=== PATIENT | female | born 1990 | race Caucasian/White ===

== ENCOUNTER 2017-10-20 18:34 | Inpatient (IN) | payer MEDICARE, OTHER ==
[~2017-10-20] VITALS: Ht 157.5 cm; Wt 62.1 kg
[~2017-10-20 18:34] MED LIST: BREX1TAB5 PO; CLOT1CRE8 TOPICAL; TRIH2 PO
[2017-10-20 19:06] VITALS: BP 104/59; PULSE 79; RESP 16; TEMP 98.1; O2SAT 99
[2017-10-20] MEDS ORDERED: QUET1TAB7 PO (21:05)
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
[2017-10-20 21:48] LABS: AMORPHOUS SEDIMENT, URINE RARE; BACTERIA, URINE MOD /hpf; BILIRUBIN, URINE NEG (NEG); BLOOD, URINE MOD (NEG); GLUCOSE,URINE NEG (NEG); KETONE, URINE NEG (NEG); MUCUS URINE FEW /lpf (OCC); NITRITE,URINE NEG (NEG); SQUAMOUS EPITHELIAL CELL URINE 5 /hpf (0-5); URINE COLOR COLORLESS (YELLW/STRAW); URINE LEUKOCYTE ESTERASE NEG (NEG)
[2017-10-20 21:48] LABS: AUTOMATED NEUTROPHIL # 6.7 TH/MM3 (1.8-7.7); BASOPHIL % 0.4 % (0.0-2.0); EOSINOPHIL # 0.1 TH/MM3 (0-0.4); HEMATOCRIT 41.3 % (35.0-46.0); HEMOGLOBIN 14.1 GM/DL (11.6-15.3); LYMPH % 22.2 % (9.0-44.0); LYMPHOCYTE # 2.1 TH/MM3 (1.0-4.8); MEAN CELL VOLUME 85.7 FL (80.0-100.0); MEAN CORPUSCULAR HEMOGLOBIN 29.2 PG (27.0-34.0); MEAN CORPUSCULAR HGB CONC 34.1 % (32.0-36.0); MEAN PLATELET VOLUME 8.1 FL (7.0-11.0); MONO % 4.4 % (0.0-8.0); MONOCYTE # 0.4 TH/MM3 (0-0.9); PLATELET COUNT 297 TH/MM3 (150-450); RED BLOOD COUNT 4.81 MIL/MM3 (4.00-5.30); RED CELL DISTRIBUTION WIDTH 13.4 % (11.6-17.2); WHITE BLOOD COUNT 9.4 TH/MM3 (4.0-11.0)
[2017-10-20 22:02] LABS: ALBUMIN 3.9 GM/DL (3.4-5.0); AST (GOT) 16 U/L (15-37); BICARBONATE 22.2 MEQ/L (21.0-32.0); BLOOD UREA NITROGEN 6 MG/DL (7-18); CALCIUM 8.8 MG/DL (8.5-10.1); CHLORIDE 110 MEQ/L (98-107); CREATININE 0.77 MG/DL (0.50-1.00); GLOMERULAR FILTRATION RATE 91 ML/MIN (>89); GLUCOSE,RANDOM 86 MG/DL (74-106); SODIUM (NA) 142 MEQ/L (136-145)
[2017-10-20 22:03] LABS: ALT (GPT) 18 U/L (10-53)
[2017-10-20 22:13] LABS: ALKALINE PHOSPHATASE 120 U/L (45-117); TOTAL BILIRUBIN ADULT 0.3 MG/DL (0.2-1.0); TOTAL PROTEIN 7.7 GM/DL (6.4-8.2)
[2017-10-20 22:15] LABS: ACETAMINOPHEN LESS THAN 2.0 MCG/ML (10.0-30.0)
[2017-10-21 06:39] VITALS: BP 114/62; PULSE 78; RESP 18; O2SAT 98
[2017-10-21] MEDS ORDERED: CEPH-460 PO (09:29)
--- NOTE | 2017-10-21 09:29 | PD ---
Physical Exam Time Seen by Provider: 09:28 Narrative See previous providers note for initial H&P. I noticed the patient had urine reflex to culture and was not treated for urinalysis with signs of infection. Keflex ordered and prescribed for home. Data Data Last Documented VS Vital Signs Date Time Temp Pulse Resp B/P (MAP) Pulse Ox O2 Delivery O2 Flow Rate FiO2 10/21/17 06:39 78 18 114/62 (79) 98 Room Air 10/20/17 19:06 98.1 Orders Orders Complete Blood Count With Diff (10/20/17 21:06) Comprehensive Metabolic Panel (10/20/17 21:06) Thyroid Stimulating Hormone (10/20/17 21:06) Urinalysis - C+S If Indicated (10/20/17 21:06) Psych Screen (10/20/17 21:06) Drug Screen, Random Urine (10/20/17 21:06) Alcohol (Ethanol) (10/20/17 21:06) Salicylates (Aspirin) (10/20/17 21:06) Tylenol (Acetaminophen) (10/20/17 21:06) Urine Culture (10/20/17 21:32) Cephalexin (Keflex) (10/21/17 09:30) Cephalexin (Keflex) (10/21/17 12:00) Quetiapine (Seroquel) (10/21/17 21:00) Admit To Inpatient Psych (10/21/17 ) Vital Signs (Adult) MEERA.Q12H.E (10/21/17 10:25) Activity Oob Ad Sindy (10/21/17 10:25) Lorazepam (Ativan) (10/21/17 10:30) Lorazepam Inj (Ativan Inj) (10/21/17 10:30) Acetaminophen (Tylenol) (10/21/17 10:30) Magnesium Hydroxide Liq (Milk Of Magnesi (10/21/17 10:30) Al-Mag Hy-Si 40-40-4 Mg/Ml Liq (Mag-Al P (10/21/17 10:30) Nicotine 21 Mg Patch.24 Hr (Habitrol 21 (10/21/17 10:30) Basic Metabolic Panel (Bmp) (10/22/17 06:00) Lipid Profile (10/22/17 06:00) Hemoglobin (Hgb) A1c (10/22/17 06:00) Labs Laboratory Tests Test 10/20/17 21:21 10/20/17 21:32 White Blood Count 9.4 TH/MM3 Red Blood Count 4.81 MIL/MM3 Hemoglobin 14.1 GM/DL Hematocrit 41.3 % Mean Corpuscular Volume 85.7 FL Mean Corpuscular Hemoglobin 29.2 PG Mean Corpuscular Hemoglobin Concent 34.1 % Red Cell Distribution Width 13.4 % Platelet Count 297 TH/MM3 Mean Platelet Volume 8.1 FL Neutrophils (%) (Auto) 72.0 % Lymphocytes (%) (Auto) 22.2 % Monocytes (%) (Auto) 4.4 % Eosinophils (%) (Auto) 1.0 % Basophils (%) (Auto) 0.4 % Neutrophils # (Auto) 6.7 TH/MM3 Lymphocytes # (Auto) 2.1 TH/MM3 Monocytes # (Auto) 0.4 TH/MM3 Eosinophils # (Auto) 0.1 TH/MM3 Basophils # (Auto) 0.0 TH/MM3 CBC Comment DIFF FINAL Differential Comment Blood Urea Nitrogen 6 MG/DL Creatinine 0.77 MG/DL Random Glucose 86 MG/DL Total Protein 7.7 GM/DL Albumin 3.9 GM/DL Calcium Level 8.8 MG/DL Alkaline Phosphatase 120 U/L Aspartate Amino Transf (AST/SGOT) 16 U/L Alanine Aminotransferase (ALT/SGPT) 18 U/L Total Bilirubin 0.3 MG/DL Sodium Level 142 MEQ/L Potassium Level 4.2 MEQ/L Chloride Level 110 MEQ/L Carbon Dioxide Level 22.2 MEQ/L Anion Gap 10 MEQ/L Estimat Glomerular Filtration Rate 91 ML/MIN Thyroid Stimulating Hormone 3rd Gen 0.874 uIU/ML Salicylates Level LESS THAN 1.7 MG/DL Acetaminophen Level LESS THAN 2.0 MCG/ML Ethyl Alcohol Level LESS THAN 3 MG/DL Urine Color COLORLESS Urine Turbidity CLEAR Urine pH 5.0 Urine Specific [place] 1.006 Urine Protein NEG mg/dL Urine Glucose (UA) NEG mg/dL Urine Ketones NEG mg/dL Urine Occult Blood MOD Urine Nitrite NEG Urine Bilirubin NEG Urine Urobilinogen LESS THAN 2.0 MG/DL Urine Leukocyte Esterase NEG Urine RBC 4 /hpf Urine WBC 1 /hpf Urine Squamous Epithelial Cells 5 /hpf Urine Amorphous Sediment RARE Urine Bacteria MOD /hpf Urine Mucus FEW /lpf Microscopic Urinalysis Comment CULTURE INDICATED Urine Opiates Screen NEG Urine Barbiturates Screen NEG Urine Amphetamines Screen NEG Urine Benzodiazepines Screen NEG Urine Cocaine Screen NEG Urine Cannabinoids Screen NEG MDM Supervised Visit with [facility]: No Narrative Course See previous providers note for initial H&P. And noticed the patient had urine reflex to culture and was not treated for urinalysis with signs of infection. Keflex ordered and prescribed for home. Diagnosis Primary Impression: Medical clearance for psychiatric admission Additional Impression: UTI (urinary tract infection) Qualified Codes: N39.0 - Urinary tract infection, site not specified Med/Other Pt SpecificInfo: Prescription(s) given Scripts Cephalexin (Keflex) 500 Mg Cap 500 MG PO Q12H for Infection for 7 Days, #14 CAP 0 Refills Prov: Roxy Talley 10/21/17 Condition: Stable Roxy Talley October 21, 2017 09:29
[2017-10-21] MEDS: CEPHALEXIN MONOHYDRATE 500 MG CAP PO SCH ×3 (09:32→21:39)
[2017-10-21] MEDS ORDERED: ALUMINUM/MAGNESIUM/SIMETH 30 ML CUP PO PRN (10:30)
[2017-10-21] MEDS ORDERED: LORazepam 1 MG TAB PO PRN (10:30)
[2017-10-21] MEDS ORDERED: ACETAMINOPHEN 325 MG TAB PO PRN (10:30)
[2017-10-21] MEDS ORDERED: MAGNESIUM HYDROXIDE SUSP 30 ML CUP PO PRN (10:30)
[2017-10-21] MEDS ORDERED: LORazepam 2 MG/ML VIAL IM PRN ×2 (10:30)
[2017-10-21] MEDS ORDERED: LORazepam 0.5 MG TAB PO PRN (10:30)
[2017-10-21 10:57] VITALS: BP 112/68; PULSE 70; RESP 16; O2SAT 100
[2017-10-21] MEDS: NICOTINE 21 MG/24 HR PATCH T-DERMAL SCH (11:46)
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
[2017-10-21] MEDS: REMOVE OLD NICODERM (NICOTINE) PATCH T-DERMAL SCH (21:00)
[2017-10-21] MEDS: QUEtiapine FUMARATE 25 MG TAB PO SCH (21:38)
[2017-10-22] MEDS: CEPHALEXIN MONOHYDRATE 500 MG CAP PO SCH ×4 (00:16→21:12)
[2017-10-22 06:18] VITALS: BP 100/55; PULSE 96; RESP 17; TEMP 97.9; O2SAT 98
[2017-10-22] MEDS: NICOTINE 21 MG/24 HR PATCH T-DERMAL SCH (08:16)
[2017-10-22 10:59] LABS: BICARBONATE 26.4 MEQ/L (21.0-32.0); BLOOD UREA NITROGEN 7 MG/DL (7-18); CALCIUM 8.8 MG/DL (8.5-10.1); CHLORIDE 107 MEQ/L (98-107); CREATININE 0.85 MG/DL (0.50-1.00); GLOMERULAR FILTRATION RATE 81 ML/MIN (>89); GLUCOSE,RANDOM 95 MG/DL (74-106); SODIUM (NA) 141 MEQ/L (136-145)
[2017-10-22 11:01] LABS: CHOLESTEROL 124 MG/DL (120-200); TRIGLYCERIDES 108 MG/DL (42-150)
[2017-10-22 11:03] LABS: CHOLESTEROL/ HDL RATIO 2.98 RATIO; HDL CHOLESTEROL 41.6 MG/DL (40.0-60.0); LDL CHOLESTEROL 61 MG/DL (0-99)
--- NOTE | 2017-10-22 12:44 | HHI.PYPN ---
Subjective Remarks Patient initially seen by Dr. Swann who dictated the initial psychiatric evaluation. I have finished the initial psychiatric template admission orders, and med reconciliation. Patient seen by me in her room with nurse lauren, chart reviewed, patient complaint medications, patient discussed with nurse. Patient did recognize me from prior contacts in 2016 as an inpatient. [place]. She states there is a medication change outpatient the lithium increased auditory hallucinations. She is not return to her Seroquel. States the voices are diminishing quickly though there were more threatening intimidating calling her to harm herself. She now denies suicidality or homicidality. She denies any alcohol or drug use, though she states she does smoke cigarettes. She now lives with her mother with a extended family. States that at times somewhat chaotic. In any event she is compliant with medications. For now continue treatment no change Review of Systems Except as stated in HPI: all other systems reviewed are Neg Mental Status Examination Appearance: Appropriate Consciousness: Alert Orientation: x4 Motor Activity: Normal gait Speech: Unremarkable Language: Adequate Fund of Knowledge: Adequate Attention and Concentration: Adequate Memory: Unremarkable Mood: Appropriate Affect: Appropriate Thought Process & Associations: Intact Thought Content: Bizarre thinking, Delusional Hallucination Type: Auditory, Command Delusion Type: None Suicidal Ideation: No Suicidal Plan: No Suicidal Intention: No Homicidal Ideation: No Homicidal Plan: No Homicidal Intention: No Insight: Fair Judgment: Impulsive Results Labs Test 10/22/17 09:34 Blood Urea Nitrogen 7 MG/DL Creatinine 0.85 MG/DL Random Glucose 95 MG/DL Calcium Level 8.8 MG/DL Sodium Level 141 MEQ/L Potassium Level 4.0 MEQ/L Chloride Level 107 MEQ/L Carbon Dioxide Level 26.4 MEQ/L Anion Gap 8 MEQ/L Estimat Glomerular Filtration Rate 81 ML/MIN Triglycerides Level 108 MG/DL Cholesterol Level 124 MG/DL LDL Cholesterol 61 MG/DL HDL Cholesterol 41.6 MG/DL Cholesterol/HDL Ratio 2.98 RATIO Date/Time Source Procedure Growth Status 10/20/17 21:32 Urine Random Urine Urine Culture - Final 50-100,000 CFU/ML MIXED CHAKA... Complete Vitals/IOs Vital Signs Date Time Temp Pulse Resp B/P (MAP) Pulse Ox O2 Delivery O2 Flow Rate FiO2 10/22/17 06:18 97.9 96 17 100/55 (70) 98 10/21/17 06:39 Room Air Assessment & Plan Problem List: (1) Paranoid type schizophrenia, chronic state ICD Codes: F20.0 - Paranoid schizophrenia Status: Acute Assessment & Plan Estimated LOS: days patient continues psychotic though it is improving, she is compliant medications. He does deny suicidality. For now continue treatment Justification for Cont. Inpt. At this time patient would decompensate a place to the lower level of care Discharge Planning Probable return home with mother and family Request HC Surrog/Guard Advoc?: No Ike Frazier MD October 22, 2017 12:44
[2017-10-22] MEDS ORDERED: diphenhydrAMINE HCL 50 MG CAP PO PRN (12:45)
[2017-10-22] MEDS ORDERED: hydrOXYzine HCL 50 MG TAB PO PRN (12:45)
[2017-10-22 16:41] LABS: HEMOGLOBIN A1C 4.8 % (4.3-6.0)
[2017-10-22 18:04] VITALS: BP 100/71; PULSE 80; RESP 16; TEMP 98.1; O2SAT 99
[2017-10-22] MEDS: REMOVE OLD NICODERM (NICOTINE) PATCH T-DERMAL SCH (21:00)
[2017-10-22] MEDS: QUEtiapine FUMARATE 25 MG TAB PO SCH (21:12)
[2017-10-23] MEDS: CEPHALEXIN MONOHYDRATE 500 MG CAP PO SCH ×2 (01:58→08:27)
[2017-10-23 05:47] VITALS: BP 93/51; PULSE 57; RESP 16; TEMP 98.1; O2SAT 98
[2017-10-23] MEDS: NICOTINE 21 MG/24 HR PATCH T-DERMAL SCH (08:27)
[2017-10-23] MEDS ORDERED: QUET1TAB7 PO (13:30)
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
== END 2017-10-23 14:50 | disposition home or self-care (01) | DRG 885 ==
LOC: NEPD 18:34 → NEDA 10-21 10:28 → H260 10-21 14:15
PROVIDERS: ADMIT Psychiatry & Neurology Psychiatry; ATTEND Psychiatry & Neurology Psychiatry
DX: F20.0 Paranoid schizophrenia (principal); N39.0 Urinary tract infection, site not specified; F32.9 Major depressive disorder, single episode, unspecified; G47.00 Insomnia, unspecified; F17.210 Nicotine dependence, cigarettes, uncomplicated; Z79.899 Other long term (current) drug therapy
CPT/HCPCS: 80048; 80053; 80061; 80307; 81001; 83036; 84443; 85025; 87086; 99285

== ENCOUNTER 2017-11-30 22:52 | Emergency (ER) | payer MEDICARE, OTHER ==
[~2017-11-30 22:52] MED LIST changes: -BREX1TAB5 PO; +CEPH-460 PO; -CLOT1CRE8 TOPICAL; +QUET1TAB7 PO; -TRIH2 PO
[2017-11-30 23:06] VITALS: BP 118/70; PULSE 97; RESP 16; TEMP 98.6; O2SAT 99
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
[2017-11-30 23:47] LABS: BACTERIA, URINE MANY /hpf; BILIRUBIN, URINE NEG (NEG); BLOOD, URINE NEG (NEG); GLUCOSE,URINE NEG (NEG); HYALINE CAST, URINE 6 /lpf (RARE); KETONE, URINE TRACE mg/dL (NEG); MUCUS URINE MANY /lpf (OCC); NITRITE,URINE NEG (NEG); SQUAMOUS EPITHELIAL CELL URINE 4 /hpf (0-5); URINE COLOR YELLOW (YELLW/STRAW); URINE LEUKOCYTE ESTERASE TRACE (NEG)
[2017-11-30 23:54] LABS: AUTOMATED NEUTROPHIL # 6.5 TH/MM3 (1.8-7.7); BASOPHIL # 0.1 TH/MM3 (0-0.2); BASOPHIL % 1.2 % (0.0-2.0); EOSINOPHIL # 0.2 TH/MM3 (0-0.4); EOSINOPHIL % 1.6 % (0.0-4.0); HEMATOCRIT 39.9 % (35.0-46.0); HEMOGLOBIN 13.8 GM/DL (11.6-15.3); LYMPH % 22.8 % (9.0-44.0); LYMPHOCYTE # 2.2 TH/MM3 (1.0-4.8); MEAN CELL VOLUME 86.2 FL (80.0-100.0); MEAN CORPUSCULAR HEMOGLOBIN 29.7 PG (27.0-34.0); MEAN CORPUSCULAR HGB CONC 34.5 % (32.0-36.0); MEAN PLATELET VOLUME 8.2 FL (7.0-11.0); MONO % 6.2 % (0.0-8.0); MONOCYTE # 0.6 TH/MM3 (0-0.9); NEUT % 68.2 % (16.0-70.0); PLATELET COUNT 296 TH/MM3 (150-450); RED BLOOD COUNT 4.63 MIL/MM3 (4.00-5.30); RED CELL DISTRIBUTION WIDTH 13.6 % (11.6-17.2); WHITE BLOOD COUNT 9.6 TH/MM3 (4.0-11.0)
[2017-12-01 00:07] LABS: ALT (GPT) 18 U/L (10-53); AST (GOT) 14 U/L (15-37); BLOOD UREA NITROGEN 6 MG/DL (7-18); CALCIUM 8.7 MG/DL (8.5-10.1); CHLORIDE 109 MEQ/L (98-107); CREATININE 0.85 MG/DL (0.50-1.00); GLOMERULAR FILTRATION RATE 81 ML/MIN (>89); GLUCOSE,RANDOM 86 MG/DL (74-106); SODIUM (NA) 143 MEQ/L (136-145)
[2017-12-01 00:17] LABS: ALKALINE PHOSPHATASE 100 U/L (45-117); TOTAL BILIRUBIN ADULT 0.2 MG/DL (0.2-1.0); TOTAL PROTEIN 7.5 GM/DL (6.4-8.2)
[2017-12-01 03:56] VITALS: PULSE 68; RESP 14; O2SAT 97
[2017-12-01 07:30] VITALS: BP 91/52; PULSE 69; RESP 18; O2SAT 98
[2017-12-01 12:00] VITALS: BP 103/56; PULSE 71; RESP 19; O2SAT 100
[2017-12-01] MEDS ORDERED: TRAZ50TA12 PO (14:58)
[2017-12-01] MEDS ORDERED: BREX1TAB5 PO (15:01)
[2017-12-01 15:51] VITALS: BP 105/69; PULSE 98; RESP 20; TEMP 98.6; O2SAT 98
[2017-12-02 02:13] VITALS: BP 104/67; PULSE 83; RESP 16; O2SAT 98
[2017-12-02 06:26] VITALS: BP 94/64; PULSE 76; RESP 16; O2SAT 99
--- NOTE | 2017-12-02 10:11 | PD ---
Physical Exam Time Seen by Provider: 10:[address] Swann has evaluated patient, lifted the Beck act and cleared the patient for discharge. Data Data Last Documented VS Vital Signs Date Time Temp Pulse Resp B/P (MAP) Pulse Ox O2 Delivery O2 Flow Rate FiO2 12/02/17 06:26 76 16 94/64 (74) 99 Room Air 12/01/17 15:51 98.6 Orders Orders Complete Blood Count With Diff (11/30/17 23:12) Comprehensive Metabolic Panel (11/30/17 23:12) Thyroid Stimulating Hormone (11/30/17 23:12) Urinalysis - C+S If Indicated (11/30/17 23:12) Ed Urine Pregnancytest Poc (11/30/17 23:12) Psych Screen (11/30/17 23:12) Drug Screen, Random Urine (11/30/17 23:12) Urine Culture (11/30/17 23:00) Diet Regular Basic (12/01/17 Breakfast) Diet Regular Basic (12/01/17 Lunch) Diet Regular Basic (12/01/17 Dinner) Diet Regular Basic (12/02/17 Breakfast) Labs Laboratory Tests Test 11/30/17 23:00 White Blood Count 9.6 TH/MM3 Red Blood Count 4.63 MIL/MM3 Hemoglobin 13.8 GM/DL Hematocrit 39.9 % Mean Corpuscular Volume 86.2 FL Mean Corpuscular Hemoglobin 29.7 PG Mean Corpuscular Hemoglobin Concent 34.5 % Red Cell Distribution Width 13.6 % Platelet Count 296 TH/MM3 Mean Platelet Volume 8.2 FL Neutrophils (%) (Auto) 68.2 % Lymphocytes (%) (Auto) 22.8 % Monocytes (%) (Auto) 6.2 % Eosinophils (%) (Auto) 1.6 % Basophils (%) (Auto) 1.2 % Neutrophils # (Auto) 6.5 TH/MM3 Lymphocytes # (Auto) 2.2 TH/MM3 Monocytes # (Auto) 0.6 TH/MM3 Eosinophils # (Auto) 0.2 TH/MM3 Basophils # (Auto) 0.1 TH/MM3 CBC Comment DIFF FINAL Differential Comment Urine Color YELLOW Urine Turbidity CLOUDY Urine pH 5.0 Urine Specific [place] 1.025 Urine Protein 30 mg/dL Urine Glucose (UA) NEG mg/dL Urine Ketones TRACE mg/dL Urine Occult Blood NEG Urine Nitrite NEG Urine Bilirubin NEG Urine Urobilinogen 2.0 mg/dL Urine Leukocyte Esterase TRACE Urine RBC 5 /hpf Urine WBC 7 /hpf Urine Squamous Epithelial Cells 4 /hpf Urine Bacteria MANY /hpf Urine Hyaline Casts 6 /lpf Urine Granular Casts 9 /lpf Urine Mucus MANY /lpf Microscopic Urinalysis Comment CULTURE INDICATED Blood Urea Nitrogen 6 MG/DL Creatinine 0.85 MG/DL Random Glucose 86 MG/DL Total Protein 7.5 GM/DL Albumin 4.0 GM/DL Calcium Level 8.7 MG/DL Alkaline Phosphatase 100 U/L Aspartate Amino Transf (AST/SGOT) 14 U/L Alanine Aminotransferase (ALT/SGPT) 18 U/L Total Bilirubin 0.2 MG/DL Sodium Level 143 MEQ/L Potassium Level 4.1 MEQ/L Chloride Level 109 MEQ/L Carbon Dioxide Level 25.0 MEQ/L Anion Gap 9 MEQ/L Estimat Glomerular Filtration Rate 81 ML/MIN Thyroid Stimulating Hormone 3rd Gen 1.690 uIU/ML Urine Opiates Screen NEG Urine Barbiturates Screen NEG Urine Amphetamines Screen NEG Urine Benzodiazepines Screen NEG Urine Cocaine Screen NEG Urine Cannabinoids Screen NEG MDM Supervised Visit with [facility]: No Narrative Course Dr. Swann has evaluated patient, lifted the Beck act and cleared the patient for discharge. Patient contracts safety. Denies suicidal or homicidal ideations. [facility]. Has friends and family for support. Patient was medically cleared by alternate provider prior to psych screening. Patient has been evaluated by psychiatry and and is now cleared for discharge. Diagnosis Primary Impression: Paranoid type schizophrenia, chronic state Additional Impression: Psychosis Referrals: [facility] (Out patient) [facility] Primary Care Physician Psychiatrist [facility] Instructions: General Instructions, Paranoid Personality Disorder (ED) , Schizophrenia (ED) Departure Forms: Tests/Procedures Additional Instruction: Contract safety to your self and others Follow-up with psychiatry Follow-up with primary care provider Follow-up with Jacinto Flores Return to the emergency department immediately with worsening of symptoms Med/Other Pt SpecificInfo: No Change to Meds, No Meds Exist/No RX given Disposition: 01 DISCHARGE HOME Condition: Stable Roxy Talley Dec 02, 2017 10:11
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
== END 2017-12-02 11:34 | disposition home or self-care (01) ==
LOC: NEPD 22:52 → NEPJ 12-02 11:34
DX: F20.0 Paranoid schizophrenia (principal); F29 Unspecified psychosis not due to a substance or known physiological condition; F43.24 Adjustment disorder with disturbance of conduct; F12.90 Cannabis use, unspecified, uncomplicated; N39.0 Urinary tract infection, site not specified; F32.9 Major depressive disorder, single episode, unspecified; G47.00 Insomnia, unspecified; Z87.442 Personal history of urinary calculi
CPT/HCPCS: 80053; 80307; 81001; 84443; 84703; 85025; 87086; 99283

== ENCOUNTER 2017-12-02 17:41 | Emergency (ER) | payer MEDICARE, OTHER ==
[~2017-12-02 17:41] MED LIST changes: +BREX1TAB5 PO; +TRAZ50TA12 PO
[2017-12-02 18:27] VITALS: BP 107/61; PULSE 105; RESP 18; TEMP 98.8; O2SAT 98
[2017-12-02 18:51] LABS: AUTOMATED NEUTROPHIL # 5.8 TH/MM3 (1.8-7.7); BASOPHIL # 0.1 TH/MM3 (0-0.2); BASOPHIL % 0.7 % (0.0-2.0); EOSINOPHIL # 0.1 TH/MM3 (0-0.4); EOSINOPHIL % 1.5 % (0.0-4.0); HEMATOCRIT 41.8 % (35.0-46.0); LYMPH % 27.2 % (9.0-44.0); LYMPHOCYTE # 2.4 TH/MM3 (1.0-4.8); MEAN CELL VOLUME 87.4 FL (80.0-100.0); MEAN CORPUSCULAR HEMOGLOBIN 29.3 PG (27.0-34.0); MEAN CORPUSCULAR HGB CONC 33.6 % (32.0-36.0); MEAN PLATELET VOLUME 8.6 FL (7.0-11.0); MONO % 6.4 % (0.0-8.0); MONOCYTE # 0.6 TH/MM3 (0-0.9); NEUT % 64.2 % (16.0-70.0); PLATELET COUNT 283 TH/MM3 (150-450); RED BLOOD COUNT 4.78 MIL/MM3 (4.00-5.30); RED CELL DISTRIBUTION WIDTH 13.3 % (11.6-17.2)
[2017-12-02 18:59] LABS: ALBUMIN 4.1 GM/DL (3.4-5.0); AST (GOT) 17 U/L (15-37); BICARBONATE 22.1 MEQ/L (21.0-32.0); BLOOD UREA NITROGEN 8 MG/DL (7-18); CALCIUM 8.6 MG/DL (8.5-10.1); CHLORIDE 109 MEQ/L (98-107); CREATININE 0.84 MG/DL (0.50-1.00); GLOMERULAR FILTRATION RATE 83 ML/MIN (>89); GLUCOSE,RANDOM 101 MG/DL (74-106); SODIUM (NA) 142 MEQ/L (136-145)
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
[2017-12-02 19:13] LABS: ALKALINE PHOSPHATASE 103 U/L (45-117); ALT (GPT) 17 U/L (10-53); TOTAL BILIRUBIN ADULT 0.4 MG/DL (0.2-1.0); TOTAL PROTEIN 7.7 GM/DL (6.4-8.2)
[2017-12-02 19:16] LABS: ACETAMINOPHEN LESS THAN 2.0 MCG/ML (10.0-30.0)
[2017-12-03 02:29] VITALS: BP 93/64; PULSE 62; RESP 18; O2SAT 100
[2017-12-03 06:40] VITALS: BP 90/64; PULSE 81; RESP 17; O2SAT 97
[2017-12-03 10:30] VITALS: BP 103/51; PULSE 67; RESP 16; TEMP 98.6; O2SAT 100
--- NOTE | 2017-12-03 10:46 | PD ---
Physical Exam Date Seen by Provider: Dec 03, 2017 Time Seen by Provider: 10:45 Narrative 27-year-old female brought in under the ex parte act, with suicidal ideation. Patient is medically cleared for psychiatric evaluation. Patient has been seen by the psychiatric staff and is felt to warrant transfer to the [facility] for further psychiatric treatment. Patient is medically stable for transfer Data Data Last Documented VS Vital Signs Date Time Temp Pulse Resp B/P (MAP) Pulse Ox O2 Delivery O2 Flow Rate FiO2 12/03/17 10:30 98.6 67 16 103/51 (68) 100 Room Air Orders Orders Complete Blood Count With Diff (12/02/17 17:44) Comprehensive Metabolic Panel (12/02/17 17:44) Thyroid Stimulating Hormone (12/02/17 17:44) Psych Screen (12/02/17 17:44) Drug Screen, Random Urine (12/02/17 17:44) Alcohol (Ethanol) (12/02/17 17:44) Salicylates (Aspirin) (12/02/17 17:44) Tylenol (Acetaminophen) (12/02/17 17:44) Diet Regular Basic (12/02/17 Dinner) Diet Regular Basic (12/03/17 Breakfast) Labs Laboratory Tests Test 12/02/17 17:55 12/02/17 18:30 White Blood Count 9.0 TH/MM3 Red Blood Count 4.78 MIL/MM3 Hemoglobin 14.0 GM/DL Hematocrit 41.8 % Mean Corpuscular Volume 87.4 FL Mean Corpuscular Hemoglobin 29.3 PG Mean Corpuscular Hemoglobin Concent 33.6 % Red Cell Distribution Width 13.3 % Platelet Count 283 TH/MM3 Mean Platelet Volume 8.6 FL Neutrophils (%) (Auto) 64.2 % Lymphocytes (%) (Auto) 27.2 % Monocytes (%) (Auto) 6.4 % Eosinophils (%) (Auto) 1.5 % Basophils (%) (Auto) 0.7 % Neutrophils # (Auto) 5.8 TH/MM3 Lymphocytes # (Auto) 2.4 TH/MM3 Monocytes # (Auto) 0.6 TH/MM3 Eosinophils # (Auto) 0.1 TH/MM3 Basophils # (Auto) 0.1 TH/MM3 CBC Comment DIFF FINAL Differential Comment Blood Urea Nitrogen 8 MG/DL Creatinine 0.84 MG/DL Random Glucose 101 MG/DL Total Protein 7.7 GM/DL Albumin 4.1 GM/DL Calcium Level 8.6 MG/DL Alkaline Phosphatase 103 U/L Aspartate Amino Transf (AST/SGOT) 17 U/L Alanine Aminotransferase (ALT/SGPT) 17 U/L Total Bilirubin 0.4 MG/DL Sodium Level 142 MEQ/L Potassium Level 3.7 MEQ/L Chloride Level 109 MEQ/L Carbon Dioxide Level 22.1 MEQ/L Anion Gap 11 MEQ/L Estimat Glomerular Filtration Rate 83 ML/MIN Thyroid Stimulating Hormone 3rd Gen 0.957 uIU/ML Salicylates Level LESS THAN 1.7 MG/DL Acetaminophen Level LESS THAN 2.0 MCG/ML Ethyl Alcohol Level LESS THAN 3 MG/DL Urine Opiates Screen NEG Urine Barbiturates Screen NEG Urine Amphetamines Screen NEG Urine Benzodiazepines Screen NEG Urine Cocaine Screen NEG Urine Cannabinoids Screen NEG MDM Medical Record Reviewed: Yes Supervised Visit with [facility]: Yes Narrative Course 27-year-old female brought in under the ex parte act, with suicidal ideation. Patient is medically cleared for psychiatric evaluation. Patient has been seen by the psychiatric staff and is felt to warrant transfer to the [facility] for further psychiatric treatment. Patient is medically stable for transfer Patient Instructions: General Instructions Scripts No Active Prescriptions or Reported Meds Disposition: 70 TRANSFER TO OTHER FACILITY Condition: Stable Ishan Rocha Dec 03, 2017 10:46
== END 2017-12-03 12:06 ==
LOC: NEDAMB 17:41 → NEPJ 12-03 12:06
DX: R45.851 Suicidal ideations (principal); F41.9 Anxiety disorder, unspecified; F32.9 Major depressive disorder, single episode, unspecified; F20.9 Schizophrenia, unspecified; Z79.899 Other long term (current) drug therapy; Z87.442 Personal history of urinary calculi
CPT/HCPCS: 80053; 80307; 84443; 85025; 99285